=== PATIENT | female | born 1985 | race Two or more races ===

== ENCOUNTER 2019-07-11 10:00 | Observation (INO) | payer OTHER ==
[~2019-07-11] VITALS: Ht 165.1 cm; Wt 85.9 kg
[2019-07-11] MEDS ORDERED: RINGERS SOLUTION,LACTATED 1,000 ML IV PRN (10:03)
[2019-07-11] MEDS ORDERED: OXYTOCIN 30 UNITS/LACT RINGERS 500 ML IV ONE (10:03)
[2019-07-11] MEDS ORDERED: METOCLOPRAMIDE HCL 5 MG/ML 2 ML VIAL IVP PRN (10:15)
[2019-07-11] MEDS ORDERED: CITRIC ACID/SODIUM CITRATE 30 ML SOLUTION UDCUP PO PRN (10:15)
[2019-07-11] MEDS ORDERED: METHYLERGONOVINE MALEATE 0.2 MG/ML VIAL IM PRN (10:15)
[2019-07-11] MEDS ORDERED: OXYGEN THERAPY IH SCH (10:15)
[2019-07-11 10:36] VITALS: BP 115/66
[2019-07-11 10:45] LABS: BASOPHILS % (AUTO) 0.8 % (0.0-2.0); EOSINOPHILS % (AUTO) 0.7 % (1.0-6.0); HEMATOCRIT 36.5 % (36-46); HEMOGLOBIN 12.1 g/dL (12.0-16.0); LYMPHOCYTES # (AUTO) 1.7 K/uL (1.0-4.8); LYMPHOCYTES % (AUTO) 16.9 % (22.0-44.0); MEAN CORPUSCULAR HEMOGLOBIN 27.9 pg (26.0-34.0); MEAN CORPUSCULAR VOLUME 85 fL (80-100); MONOCYTES # (AUTO) 0.5 K/uL (0.1-1.0); MONOCYTES % (AUTO) 5.2 % (2.0-9.0); NEUTROPHILS # (AUTO) 7.7 K/uL (1.8-7.7); NEUTROPHILS % (AUTO) 76.4 % (40.0-70.0); PLATELET COUNT (AUTO) 195 K/uL (150-450); RED BLOOD CELL COUNT(AUTO) 4.32 MIL/uL (4.00-5.20); RED CELL DISTRIBUTION WIDTH 15.7 % (11.5-14.5)
[2019-07-11] MEDS ORDERED: DINOPROSTONE 10 MG VAGINAL SUPPOSITORY VG ONE (11:00)
[2019-07-11] MEDS ORDERED: PREN-217 PO (11:03)
[2019-07-11] MEDS: RINGERS SOLUTION,LACTATED 1,000 ML IV SCH ×2 (11:23→17:21)
[2019-07-11] MEDS ORDERED: MISOPROSTOL 25 MCG TABLET VG ONE (21:45)
[2019-07-11] MEDS ORDERED: -PHARMACY NOTE- MISC ONE (23:00)
[2019-07-12] MEDS ORDERED: OXYTOCIN 30 UNITS/LACT RINGERS 500 ML IV ONE (00:17)
[2019-07-12] MEDS: FentaNYL CITRATE-PF 100 MCG/2 ML VIAL IVP PRN ×4 (00:21→06:22)
[2019-07-12] MEDS: RINGERS SOLUTION,LACTATED 1,000 ML IV SCH ×3 (00:21→08:26)
[2019-07-12] MEDS: MISOPROSTOL 50 MCG TABLET PO SCH ×2 (04:17→08:34)
[2019-07-12] MEDS ORDERED: INFLUENZA VIRUS VACCINE QVS 2019-20 (3YR+)/PF 60 MCG/0.5 ML SYRINGE IM ONE (11:45)
[2019-07-13] MEDS ORDERED: ACET-2744 PO (04:57)
== END 2019-07-12 09:35 | disposition home or self-care (01) ==
LOC: INTOOBSV 10:00 → 4S 10:00 → OBSVTOIN 10:00
PROVIDERS: ADMIT Obstetrics & Gynecology; ATTEND Obstetrics & Gynecology
DX: O48.0 Post-term pregnancy (principal); Z3A.40 40 weeks gestation of pregnancy
CPT/HCPCS: 85025; 96374; 96376; G0378 ×2; J2590; J3010; J7120 ×2; 86850; 86900; 86901

== ENCOUNTER 2019-07-12 11:25 | Inpatient (IN) | payer OTHER ==
[~2019-07-12] VITALS: Ht 165.1 cm; Wt 85.7 kg
[~2019-07-12 11:25] MED LIST: PREN-217 PO
[2019-07-12 11:56] VITALS: BP 115/62
[2019-07-12] MEDS ORDERED: OXYTOCIN 30 UNITS/LACT RINGERS 500 ML IV ONE (12:51)
[2019-07-12] MEDS ORDERED: RINGERS SOLUTION,LACTATED 1,000 ML IV PRN (12:51)
[2019-07-12] MEDS ORDERED: FentaNYL CITRATE-PF 100 MCG/2 ML VIAL IVP PRN (13:00)
[2019-07-12] MEDS ORDERED: CITRIC ACID/SODIUM CITRATE 30 ML SOLUTION UDCUP PO PRN (13:00)
[2019-07-12] MEDS ORDERED: METHYLERGONOVINE MALEATE 0.2 MG/ML VIAL IM PRN (13:00)
[2019-07-12] MEDS ORDERED: METOCLOPRAMIDE HCL 5 MG/ML 2 ML VIAL IVP PRN (13:00)
[2019-07-12] MEDS ORDERED: OXYGEN THERAPY IH SCH (13:00)
[2019-07-12 13:30] LABS: BASOPHILS % (AUTO) 1.1 % (0.0-2.0); EOSINOPHILS % (AUTO) 0.7 % (1.0-6.0); HEMATOCRIT 37.7 % (36-46); HEMOGLOBIN 12.5 g/dL (12.0-16.0); LYMPHOCYTES # (AUTO) 1.6 K/uL (1.0-4.8); LYMPHOCYTES % (AUTO) 12.5 % (22.0-44.0); MEAN CORPUSCULAR HEMOGLOBIN 28.1 pg (26.0-34.0); MEAN CORPUSCULAR HGB CONC 33.1 G/dL (31.0-37.0); MEAN CORPUSCULAR VOLUME 85 fL (80-100); MONOCYTES # (AUTO) 0.8 K/uL (0.1-1.0); MONOCYTES % (AUTO) 6.2 % (2.0-9.0); NEUTROPHILS # (AUTO) 10.2 K/uL (1.8-7.7); NEUTROPHILS % (AUTO) 79.5 % (40.0-70.0); PLATELET COUNT (AUTO)-OB 191 K/uL (150-450); RED BLOOD CELL COUNT(AUTO) 4.44 MIL/uL (4.00-5.20); RED CELL DISTRIBUTION WIDTH 15.8 % (11.5-14.5)
[2019-07-12] MEDS: RINGERS SOLUTION,LACTATED 1,000 ML IV SCH ×2 (13:43→20:32)
[2019-07-12] MEDS ORDERED: MISOPROSTOL 25 MCG TABLET VG ONE (13:45)
[2019-07-12] MEDS ORDERED: MISOPROSTOL 50 MCG TABLET PO ONE (17:45)
[2019-07-12] MEDS ORDERED: OXYTOCIN 30 UNITS/LACT RINGERS 500 ML IV PRN (20:14)
[2019-07-12] MEDS ORDERED: INFLUENZA VIRUS VACCINE QVS 2019-20 (3YR+)/PF 60 MCG/0.5 ML SYRINGE IM ONE (20:45)
[2019-07-12] MEDS: MISOPROSTOL 25 MCG TABLET VG SCH (22:51)
[2019-07-13] MEDS: MISOPROSTOL 25 MCG TABLET VG SCH ×2 (02:54→06:38)
[2019-07-13] MEDS: RINGERS SOLUTION,LACTATED 1,000 ML IV SCH ×3 (04:35→12:33)
[2019-07-13] MEDS ORDERED: ACET-2744 PO (04:57)
[2019-07-13] MEDS ORDERED: OXYTOCIN 30 UNITS/LACT RINGERS 500 ML IV PRN (09:30)
[2019-07-13] MEDS ORDERED: ROPIVACAINE HCL/PF 0.2% 100 ML ED ONE (10:14)
[2019-07-13] MEDS ORDERED: ROPIVACAINE HCL/PF 0.2% 100 ML ED PRN (10:42)
[2019-07-13] MEDS ORDERED: DiphenhydrAMINE HCL 50 MG/ML VIAL IVP PRN (10:45)
[2019-07-13] MEDS ORDERED: NALBUPHINE HCL 10 MG/ML VIAL IVP PRN (10:45)
[2019-07-13] MEDS ORDERED: ONDANSETRON HCL 4 MG/2 ML VIAL IVP PRN (10:45)
[2019-07-13] MEDS ORDERED: OXYTOCIN 20 UNITS/LACT RINGERS 1,000 ML IV SCH (17:19)
[2019-07-13] MEDS ORDERED: MEASLES/MUMPS/RUBELLA VACCINE, LIVE 0.5 ML/VIAL SQ ONE (17:30)
[2019-07-13] MEDS ORDERED: SENNA/DOCUSATE SODIUM 8.6-50 MG TABLET PO PRN (17:30)
[2019-07-13] MEDS ORDERED: BENZOCAINE 20%/MENTHOL 56 GM SPRAY CANISTER TP PRN (17:30)
[2019-07-13] MEDS ORDERED: GLYCERIN/WITCH HAZEL LEAF 40 PADS JAR TP PRN (17:30)
[2019-07-13] MEDS ORDERED: LANOLIN 7 GM OINTMENT TP PRN (17:30)
[2019-07-13] MEDS ORDERED: ACETAMINOPHEN/CODEINE 300-30 MG TABLET PO PRN (17:30)
[2019-07-13] MEDS: MAGNESIUM HYDROXIDE SUSPENSION 30 ML UDCUP PO PRN (21:15)
[2019-07-13] MEDS: IBUPROFEN 600 MG TABLET PO PRN (21:15)
[2019-07-14 05:43] LABS: BASOPHILS % (AUTO) 0.4 % (0.0-2.0); EOSINOPHILS % (AUTO) 0.8 % (1.0-6.0); HEMATOCRIT 32.2 % (36-46); HEMOGLOBIN 10.8 g/dL (12.0-16.0); LYMPHOCYTES # (AUTO) 2.6 K/uL (1.0-4.8); LYMPHOCYTES % (AUTO) 20.8 % (22.0-44.0); MEAN CORPUSCULAR HEMOGLOBIN 28.5 pg (26.0-34.0); MEAN CORPUSCULAR HGB CONC 33.4 G/dL (31.0-37.0); MEAN CORPUSCULAR VOLUME 85 fL (80-100); MONOCYTES # (AUTO) 1.2 K/uL (0.1-1.0); MONOCYTES % (AUTO) 9.2 % (2.0-9.0); NEUTROPHILS # (AUTO) 8.6 K/uL (1.8-7.7); NEUTROPHILS % (AUTO) 68.8 % (40.0-70.0); PLATELET COUNT (AUTO)-OB 172 K/uL (150-450); RED BLOOD CELL COUNT(AUTO) 3.77 MIL/uL (4.00-5.20); RED CELL DISTRIBUTION WIDTH 16.2 % (11.5-14.5)
[2019-07-14] MEDS: MAGNESIUM HYDROXIDE SUSPENSION 30 ML UDCUP PO PRN (08:24)
[2019-07-14] MEDS: IBUPROFEN 600 MG TABLET PO PRN (08:42)
[2019-07-14] MEDS ORDERED: IBUP-2071 PO (12:25)
[2019-07-14] MEDS ORDERED: DOCU-275 PO (12:28)
[2019-07-14] MEDS ORDERED: FERR-89 PO (12:30)
== END 2019-07-14 17:05 | disposition home or self-care (01) | DRG 807 ==
LOC: 4S 11:25 → OBSVTOIN 11:25
PROVIDERS: ADMIT Obstetrics & Gynecology; ATTEND Obstetrics & Gynecology
PROC: 10E0XZZ Delivery of Products of Conception, External Approach (ICD-10-PCS; principal; 2019-07-13)
PROC: 0KQM0ZZ Repair Perineum Muscle, Open Approach (ICD-10-PCS; 2019-07-13)
PROC: 3E0R3BZ Introduction of Anesthetic Agent into Spinal Canal, Percutaneous Approach (ICD-10-PCS; 2019-07-13)
PROC: 00HU33Z Insertion of Infusion Device into Spinal Canal, Percutaneous Approach (ICD-10-PCS; 2019-07-13)
DX: O70.1 Second degree perineal laceration during delivery (principal); Z37.0 Single live birth; Z3A.40 40 weeks gestation of pregnancy
CPT/HCPCS: 86850; 86900; 86901; 89060; J2795; J3010; J7120